=== PATIENT | female | born 1950 | race Caucasian/White ===

== ENCOUNTER 2017-11-01 02:40 | Emergency (ER) | payer MEDICARE, BC ==
[2017-11-01] MEDS ORDERED: ONDANSETRON HCL IV 4 MG/2 ML VIAL IVP ONE (02:45)
[2017-11-01] MEDS ORDERED: 0.9 % SODIUM CHLORIDE 1000ML 1,000 ML IV SCH (02:45)
[2017-11-01] MEDS ORDERED: MORPHINE SULFATE 5 MG/ML PFS IVP ONE (02:45)
--- NOTE | 2017-11-01 02:50 | Emergency Department Record ---
History of Present Illness - General Chief Complaint: Abdominal Pain Stated Complaint: ABD PAIN RADIATING TO BACK Source: Patient Mode of Arrival: EMS Limitations: No limitations - History of Present Illness Initial Comments: 67 yo female presents to ED for evaluation of epigastric abdominal pain that began approximately 1 hours prior to arrival. Patient reports that her pain symptoms radiate to her back, reports similar pain symptoms 8 years ago resulting from pancreatitis. Patient denies previous GB disease, denies alcohol intake. Patient denies health problems other than mild HTN. MD Complaint: Abdominal pain Onset/Timin -: Hour(s) Location: Epigastric Radiation: None Severity: Moderate Severity scale (1-10): 5 Quality: Aching Consistency: Constant Improves With: Nothing Worsens With: Nothing Associated Symptoms: Denies other symptoms - Related Data Patient : No Home Medications Medication Instructions Recorded Confirmed Last Taken Lisinopril [Lisinopril] 2.5 mg PO DAILY 11/01/17 11/01/17 Unknown Sumatriptan Succinate 100 mg PO DAILY 11/01/17 11/01/17 Unknown Previous Rx's Medication Instructions Recorded Hydrocodone/Acetaminophen [Alpha 1 each PO 10 PRN #10 tablet 11/01/17 5-325 Tablet] Allergies Allergy/AdvReac Type Severity Reaction Status Date / Time Penicillins Allergy ANAPHYLAXIS Verified 03/20/15 20:33 phenobarbital Allergy RASH Verified 11/01/17 02:45 Review of Systems Constitutional: Denies: Chills, Fever, Malaise, Night sweats Eyes: Denies: Eye discharge, Eye pain ENT: Denies: Congestion, Ear pain, Epistaxis Respiratory: Denies: Cough, Dyspnea Cardiovascular: Denies: Chest pain, Dyspnea on exertion Endocrine: Denies: Fatigue, Heat or cold intolerance Gastrointestinal: Reports: Abdominal pain. Denies: Nausea, Vomiting Genitourinary: Denies: Incontinence, Retention Musculoskeletal: Reports: Back pain. Denies: Arthralgia, Gout, Joint swelling Skin: Denies: Bruising, Change in color Neurological: Denies: Abnormal gait, Confusion, Headache, Seizure Psychiatric: Denies: Anxiety Hematological/Lymphatic: Denies: Anemia, Blood Clots Past Medical History - SOCIAL HISTORY Smoking Status: Former smoker Drug Use: None - RESPIRATORY Hx Respiratory Disorders: Yes Hx Bronchitis: Yes - CARDIOVASCULAR Hx Cardio Disorders: Yes Hx Hypertension: Yes - NEURO Hx Neuro Disorders: Yes Hx Headaches: Yes - GI Hx GI Disorders: Yes Hx Pancreatitis: Yes - Hx Genitourinary Disorders: Yes Hx Bladder Problem: Yes Hx UTI: Yes - ENDOCRINE Hx Endocrine Disorders: No - MUSCULOSKELETAL Hx Musculoskeletal Disorders: Yes Hx Arthritis: Yes - PSYCH Hx Psych Problems: No - HEMATOLOGY/ONCOLOGY Hx Hematology/Oncology Disorders: No Family Medical History Hx Cancer: Father, Mother Hx Diabetes: Father, Grandparents Hx Stroke: Father Physical Exam - General General Appearance: Alert, Oriented x3, Cooperative, Moderate distress Limitations: No limitations - Head Head exam: Atraumatic, Normocephalic, Normal inspection Head exam detail: negative: Abrasion, Contusion, Suh's sign, General tenderness, Hematoma, Laceration - Eye Eye exam: Normal appearance. negative: Conjunctival injection, Periorbital swelling, Periorbital tenderness, Scleral icterus - ENT Ear exam: negative: Auricular hematoma, Auricular trauma Nasal Exam: negative: Active bleeding, Discharge, Dried blood, Foreign body Mouth exam: negative: Drooling, Laceration, Muffled voice, Tongue elevation - Neck Neck exam: Normal inspection. negative: Meningismus, Tenderness - Respiratory Respiratory exam: Normal lung sounds bilaterally. negative: Rales, Respiratory distress, Rhonchi, Stridor - Cardiovascular Cardiovascular Exam: Regular rate, Normal rhythm, Normal heart sounds - GI/Abdominal GI/Abdominal exam: Soft, Tenderness (TTP RUQ, epigastric region on examination) . negative: Rebound, Rigid - Rectal Rectal exam: Deferred - exam: Deferred - Extremities Extremities exam: Normal inspection. negative: Calf tenderness, Pedal edema, Tenderness - Back Back exam: Denies: CVA tenderness (R), CVA tenderness (L) - Neurological Neurological exam: Alert, Oriented X3 - Psychiatric Psychiatric exam: Normal affect, Normal mood - Skin Skin exam: Normal color. negative: Abrasion Type of lesion: negative: abrasion Course - Reevaluation(s) Reevaluation #1: 11/01/17 03:44 Laboratory studies reviewed, Lipase 612, labs are otherwise grossly unremarkable for an acute process. Reevaluation #2: 11/01/17 04:26 EKG: NSR 58 Normal axis, normal intervals No acute ST-T wave changes Reevaluation #3: 11/01/17 04:33 CT Abdomen and Pelvis: Evidence of an infectious/Inflammatory enteritis Will obtain lactic acid, patient resting comfortably at this time. No evidence for acute cholecystitis on examination. Reevaluation #4: 11/01/17 05:32 lactic acid is 2.0, no evidence for for ischemic colitis. Patient reports that her pain symptoms are improved, and the patient appears stable for discharge with instructions for follow-up. Medical Decision Making - Lab Data Result diagrams: 11/01/17 02:55 11/01/17 02:55 Disposition Disposition: Discharge Clinical Impression: Pancreatitis Qualifiers: Chronicity: acute Pancreatitis type: unspecified pancreatitis type Acute pancreatitis complication: unspecified Qualified Code(s): K85.90 - Acute pancreatitis without necrosis or infection, unspecified Disposition: Home, Self-Care Condition: (2) Stable Instructions: Pancreatitis (ED) Additional Instructions: Return to ED if your symptoms worsen or if you have any concerns. Alpha as directed for pain. Follow-up with your family doctor in 1-3 days as directed. Prescriptions: Hydrocodone/Acetaminophen [Alpha 5-325 Tablet] 1 each PO 10 PRN #10 tablet PRN Reason: Pain - Moderate (5-7) Forms: Patient Portal Access Time of Disposition: 05:35 Quality - Quality Measures Quality Measures: N/A - Blood Pressure Screening Does Patient Have Any of the Following: No Blood Pressure Classification: Normal BP Reading Systolic Measurement: 110 Diastolic Measurement: 70 Screening for High Blood Pressure: < Normal BP, F/U Not Required > [G8783]
[2017-11-01 03:06] LABS: BASO % 0.2 % (0-6); EOS % 3.2 % (0-6); GRAN % 61.6 % (47-80); HEMATOCRIT 45.4 % (35.0-47.0); LYMPH % 29.1 % (16-45); MEAN CELL VOLUME 83.6 fl (81-97); MEAN CORPUSCULAR HEMOGLOBIN 27.6 pg (27-33); MEAN PLATELET VOLUME 10.4 fl (7.4-10.4); MONO % 5.9 % (0-9); PLATELET COUNT 295 K/uL (130-400); RED BLOOD COUNT 5.43 M/uL (3.80-5.40); RED CELL DISTRIBUTION WIDTH 14.1 % (11.5-14.5); WHITE BLOOD COUNT W/O DIFF 8.5 K/uL (4.2-12.2)
[2017-11-01 03:21] LABS: ALB/GLOB RATIO 1.7 (1.1-1.8); ALBUMIN 4.4 g/dL (4.0-5.0); ALKALINE PHOSPHATASE 65 U/L (35-104); ALT/SGPT 16 U/L (<33); AST/SGOT 16 U/L (10.0-35.0); BLOOD UREA NITROGEN 18 mg/dL (8-23); CREATININE 0.7 mg/dL (0.5-0.9); EST GLOMERULAR FILTRATION RATE > 60 mL/min; GLUCOSE,RANDOM 146 mg/dL (74-109)
[2017-11-01 03:33] LABS: LIPASE 612 U/L (13-60)
--- NOTE | 2017-11-01 14:22 | CT SCAN REPORT ---
EXAM: CT OF THE ABDOMEN AND PELVIS WITH CONTRAST HISTORY: RIGHT UPPER QUADRANT ABDOMINAL PAIN FOR A FEW HOURS. TECHNIQUE: Contrast enhanced helical CT examination of the abdomen and pelvis was performed including delayed images through the kidneys with 100 ml of Omnipaque 300 utilized. Comparison: CT of the abdomen and pelvis without contrast dated 08/24/16. FINDINGS: There is minimal dependent atelectasis in each lung base. The visualized lung bases are otherwise clear and there is no pleural or pericardial effusion. A small hiatal hernia is present. The wall of the intrathoracic portion of the stomach appears somewhat prominent in thickness though this may just relate to incomplete distention. A too small to characterize hypodense lesion is redemonstrated within the liver dome measuring 3 mm. This is stable. It is nonspecific, but likely a cyst or a hemangioma. There is redemonstration of a well circumscribed hypodense mass within the lateral segment of the left liver lobe adjacent to the fissure of the falciform ligament measuring 1.1 x 1.1 cm. This has a density of 8 Hounsfield units and is consistent with a cyst. It is unchanged. There is redemonstration of a mass centrally within the lateral segment of the left liver lobe. This currently measures 1.8 x 1.5 cm while on the prior examination hypodensity in this area measured 2.6 x 2.2 cm. There is peripheral nodular enhancement. This enhancement pattern is consistent with hemangioma. No other focal hepatic lesion. The spleen, pancreas, and adrenal glands are normal in appearance. There is a 3 mm nonobstructing calculus in the lower right kidney, stable. A tiny fat density focus is again noted within the posterior cortex of the upper pole of the left kidney consistent with angiomyolipoma, stable. There are a few too small to characterize hypodense foci within the left kidney and one in the right kidney. These are nonspecific, but are likely cysts. The kidneys are otherwise normal in appearance. The gallbladder is unremarkable. No biliary ductal dilatation is seen. No intraabdominal nor retroperitoneal lymphadenopathy. The uterus is surgically absent. There is a small volume of ascites within the dependent pelvis and there is a small amount of ascites contiguous with the liver primarily on the right. No definite pelvic mass nor lymphadenopathy. No intrinsic urinary bladder abnormality is seen. There is diffuse diverticulosis most pronounced in the sigmoid region where it is severe. No definite diverticulitis. The cecum is located in the right mid to upper abdomen. The appendix is visualized and normal in appearance. There is questionable minor wall thickening of several small bowel loops in the right lower quadrant for which mild enteritis cannot be excluded. No free intraperitoneal air. No lytic or blastic bone lesion. IMPRESSION: 1. SMALL VOLUME OF ASCITES OF INDETERMINATE ETIOLOGY. 2. POSSIBLE MINOR WALL THICKENING OF SEVERAL LOOPS OF ILEUM IN THE RIGHT LOWER QUADRANT WITH MILD ENTERITIS POSSIBLE. NO EXTRALUMINAL AIR. 3. COLONIC DIVERTICULOSIS. 4. THERE IS A PERIPHERALLY ENHANCING MASS WITHIN THE LATERAL SEGMENT OF THE LEFT LIVER LOBE WITH THE ENHANCEMENT PATTERN CONSISTENT WITH HEMANGIOMA. HEPATIC CYSTS. 5. TINY ANGIOMYOLIPOMA OF THE LEFT KIDNEY. THERE ARE A FEW TOO SMALL TO CHARACTERIZE HYPODENSE LESIONS WITHIN THE KIDNEYS. THESE ARE NONSPECIFIC, BUT ARE LIKELY CYSTS. SMALL NONOBSTRUCTING CALCULUS IN THE RIGHT KIDNEY. 6. HIATAL HERNIA. APPARENT MILD WALL THICKENING OF THE INTRATHORACIC PORTION OF THE STOMACH THOUGH THIS MAY JUST RELATE TO INCOMPLETE DISTENTION. IF CLINICALLY WARRANTED THIS COULD BE FURTHER EVALUATED WITH DIRECT VISUALIZATION. 7. 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 THIS IS STABLE. JOB NUMBER: [id number] MTDD
== END 2017-11-01 05:49 | disposition home or self-care (01) ==
LOC: ER 02:40
DX: K85.90 Acute pancreatitis without necrosis or infection, unspecified (principal); R11.11 Vomiting without nausea; I10 Essential (primary) hypertension; Z87.891 Personal history of nicotine dependence
CPT/HCPCS: 99284 ×2; 96374; 96375; 83605; 83690; 85025; 80053; 84484; 74177; 93005; 93010; Q9967; J2405; J2270; J7030

== ENCOUNTER 2018-03-13 07:32 | Day surgery (SDC) | payer MEDICARE, BC ==
[~2018-03-13 07:32] MED LIST: ACETAMINOPHEN 1,000 MG/100 ML BTL IV ONE; FAMOTIDINE 20MG TABLET PO ONE; MECLIZINE 25 MG TABLET PO ONE; METOCLOPRAMIDE 10 MG TABLET PO ONE
[2018-03-13] MEDS ORDERED: KETOROLAC 30 MG/ML VIAL IVP ONE (07:33)
[2018-03-13] MEDS ORDERED: LIDOCAINE 1% MDV (10MG/ML) 20ML VIAL SQ ONE (07:33)
[2018-03-13] MEDS ORDERED: SEVOFLURANE 250 ML INH ONE (07:33)
[2018-03-13] MEDS ORDERED: ROCURONIUM BROMIDE 50MG/5ML VIAL IV ONE (07:33)
[2018-03-13] MEDS ORDERED: MIDAZOLAM HCL 2MG/2ML VIAL IV ONE (07:33)
[2018-03-13] MEDS ORDERED: PROPOFOL 10 MG/ML VIAL IV ONE (07:33)
[2018-03-13] MEDS ORDERED: HYDROCODONE/APAP 5/325MG TABLET PO ONE (07:33)
[2018-03-13] MEDS ORDERED: BUPIVACAINE 0.25% W/EPI MPF 30ML VIAL IVP ONE (07:33)
[2018-03-13] MEDS ORDERED: SUCCINYLCHOLINE 20 MG/ML 10ML IVP ONE (07:33)
[2018-03-13] MEDS ORDERED: NEOSTIGMINE 1 MG/1 ML,10ML VIAL IV ONE (07:33)
[2018-03-13] MEDS ORDERED: GLYCOPYRROLATE 0.2 MG/ML ML IV ONE (07:33)
[2018-03-13] MEDS ORDERED: ONDANSETRON HCL IV 4 MG/2 ML VIAL IVP ONE (07:33)
[2018-03-13] MEDS ORDERED: FENTANYL PF 100MCG/2ML VIAL IV ONE (07:33)
--- NOTE | 2018-03-15 08:00 | Operative Note ---
DATE OF SURGERY: 03/13/2018 Surgeon: Yvan Hayes DO PREOPERATIVE DIAGNOSIS: Cholelithiasis with chronic cholecystitis. POSTOPERATIVE DIAGNOSIS: Cholelithiasis with chronic cholecystitis. OPERATION: Laparoscopic cholecystectomy. Indication: The patient is a 67-year-old female who has had ongoing right subcostal postprandial pain. We did discuss cholecystectomy versus medical management. She desired surgical intervention. Risks include but are not limited to bleeding, infection, ductal injury, possible conversion to open, postoperative bile leak. She understood this fully. PROCEDURE: The consent was signed and questions answered. She was taken to the operating room and placed in a supine position. General anesthesia was administered per the Department of Anesthesia. The patient's abdomen was prepped and draped in the sterile fashion. The periumbilical region was anesthetized with a total of 5 mL of 0.25% Sensorcaine with epinephrine. A 2 cm periumbilical incision was made. This was carried down bluntly to the anterior rectus fascia. This was incised. Ronny clamps were placed on the fascial edges and brought into the wound. Stay sutures of 0 Vicryl were placed. The posterior rectus sheath was identified and incised. The peritoneal cavity was entered bluntly. At this time a 10 mm blunt Brock port was placed. Adequate pneumoperitoneum was established. Under direct visualization, additional 5 mm epigastric and two 5 mm right subcostal ports were placed. The patient was rotated into the deep transverse Trendelenburg and placed with rotation to the left. The gallbladder was identified. This was retracted in a cephalad and lateral direction opening up the angle of Calot. The hepatocystic triangle was thoroughly dissected out. There was no aberrant anatomy, no posterior ductal structures. The distal half of the gallbladder was released from the cystic plate elongating a retro ductal window. The cystic duct and cystic artery were clearly identified. Each one was doubly clipped and cut in a standard fashion. The gallbladder was then taken off the liver bed with Jose Harmonic. This was extracted through the umbilical port. The right upper quadrant was rechecked and found to be hemostatic. No bleeding. No bile leak and no bowel injury noted. The patient was leveled out. The pneumoperitoneum was released. All ports were removed. The fascia was closed with 0 Vicryl in a [id number] fashion. The skin in all 4 ports was closed with 4-0 Vicryl. She was taken to the recovery room in satisfactory condition. FINDINGS AT THE TIME OF SURGERY: Chronic cholecystitis. MTDD
== END 2018-03-13 11:00 | disposition home or self-care (01) ==
LOC: SUR 07:32
PROVIDERS: ATTEND Surgery
DX: K80.10 Calculus of gallbladder with chronic cholecystitis without obstruction (principal); I10 Essential (primary) hypertension
CPT/HCPCS: C1776; J0330; J1885; J2405; J2710

== ENCOUNTER → 2018-03-30 | Day surgery (SDC) | payer MEDICARE, BC ==
[~2018-03-30] MED LIST changes: -ACETAMINOPHEN 1,000 MG/100 ML BTL IV ONE; -FAMOTIDINE 20MG TABLET PO ONE; +LIDOCAINE 1% MDV (10MG/ML) 20ML VIAL SQ ONE; -MECLIZINE 25 MG TABLET PO ONE; -METOCLOPRAMIDE 10 MG TABLET PO ONE; +PROPOFOL 10 MG/ML VIAL IV ONE
--- NOTE | 2018-03-31 13:00 | Operative Note ---
DATE OF SURGERY: 03/30/2018 OPERATION: ESOPHAGOGASTRODUODENOSCOPY with biopsy and hot snare polypectomy and hemoclip application. PREOPERATIVE DIAGNOSIS: Epigastric pain. POSTOPERATIVE DIAGNOSES: 1. Small hiatal hernia. 2. Gastritis. 3. Gastric polyp. PROCEDURE: After informed consent was obtained from the patient, she was placed in the left lateral decubitus position in the endoscopy suite, sedated and monitored by the department of anesthesia. Once sedated, a well-lubricated [id number] gastroscope was placed in the posterior oropharynx and under direct visualization passed to the proximal esophagus. The endoscope was advanced through the proximal, mid, and distal esophagus. The GE junction was unremarkable. There was a small hiatal hernia. The subdiaphragmatic stomach demonstrated a polyp in the mid body. The antrum demonstrated patchy erythema. The duodenal bulb and sweep were unremarkable. J-turn views of the proximal stomach revealed a small hiatal hernia. The endoscope was straightened and random gastric biopsies were obtained. The polyp was attempted to be biopsied but this was somewhat firm and as a result, it was removed with a polypectomy snare and ERBE Endocut current. The polypectomy defect was closed with 2 hemoclips. There was no bleeding noted after the clips had been applied. There was scant bleeding prior to the clips. The stomach was deflated. The endoscope removed from the patient. No new findings noted. RECOMMENDATIONS: The patient should avoid aspirin and nonsteroidal products for the next 2 weeks. Further recommendations will be forthcoming once tissue histology is available. As always, thank you for allowing me to participate in the healthcare of your patients. CC: KYRA DE LA VEGA D.O. Yvan Hayes, DO AQUINO
== END | disposition home or self-care (01) ==
LOC: HOP 10:52
PROVIDERS: ATTEND Internal Medicine Gastroenterology
DX: R10.13 Epigastric pain (principal); K44.9 Diaphragmatic hernia without obstruction or gangrene; K29.70 Gastritis, unspecified, without bleeding; D13.1 Benign neoplasm of stomach; I10 Essential (primary) hypertension

== ENCOUNTER 2018-08-05 09:29 | Emergency (ER) | payer MEDICARE, BC ==
[2018-08-05] MEDS ORDERED: KETOROLAC 30 MG/ML VIAL IVP ONE (09:45)
[2018-08-05] MEDS ORDERED: SODIUM CHLORIDE 0.9% 500 ML IV ONE (09:45)
[2018-08-05] MEDS ORDERED: 0.9 % SODIUM CHLORIDE 1000ML 1,000 ML IV PRN (09:45)
--- NOTE | 2018-08-05 09:52 | Emergency Department Record ---
History of Present Illness - General Chief complaint: Flank Pain Stated complaint: POSS KIDNEY STONES Time Seen by Provider: 08/05/18 09:33 Source: Patient Mode of Arrival: Ambulatory Limitations: No limitations - History of Present Illness Initial comments: Pt with one week of LLQ pains. Pain is worse in waves and with motion. Low grade tactile fevers at home. Diarrhea over the week "liquid with small stool in it" No blood in stool. Also notes some discomfort with urinatuion but no blood. No upper flank pain. Nausea after taking two Aleve and vomited once at that time. Hx of AMADA and GB surgery. Onset/Timin -: Week(s) Radiation: L flank, LLQ Severity: Moderate Quality: Aching, Cramping Consistency: Constant, Intermittent - Related Data Home Medications Medication Instructions Recorded Confirmed Last Taken Budesonide/Formoterol Fumarate 10.2 gm IH DAILY 08/05/18 08/05/18 1 Day Ago [Symbicort 160-4.5 Mcg Inhaler] ~08/04/18 Previous Rx's Medication Instructions Recorded Ciprofloxacin HCl [Cipro] 500 mg PO Q12HR 10 Days #20 tablet 08/05/18 Metronidazole [Flagyl] 500 mg PO BID 10 Days #20 tablet 08/05/18 Allergies Allergy/AdvReac Type Severity Reaction Status Date / Time divalproex sodium Allergy HIVES Verified 08/05/18 09:44 [From Depakote] doxycycline Allergy HIVES Verified 08/05/18 09:44 Penicillins Allergy ANAPHYLAXIS Verified 08/05/18 09:44 phenobarbital Allergy RASH Verified 08/05/18 09:44 Travel Screening - Travel/Exposure Within Last 30 Days Have you traveled within the last 30 days?: No - Travel/Exposure Within Last Year Have you traveled outside the [place] in the last year?: No - Additonal Travel Details Have you been exposed to anyone with a communicable illness?: No - Travel Symptoms Symptom Screening: None Review of Systems Constitutional: Reports: Fever (tactile). Denies: Chills, Weakness Eyes: Denies: Eye discharge, Eye pain ENT: Denies: Congestion, Dental pain Respiratory: Denies: Cough, Dyspnea Cardiovascular: Denies: Arrhythmia, Chest pain Endocrine: Denies: Fatigue, Polydipsia, Polyuria Gastrointestinal: Reports: As per HPI, Abdominal pain, Diarrhea, Nausea. Denies : Constipation Genitourinary: Reports: Dysuria. Denies: Hematuria, Retention, Urgency Musculoskeletal: Denies: Arthralgia, Joint swelling Skin: Denies: Bruising, Rash Neurological: Denies: Abnormal gait, Headache, Tingling Psychiatric: Denies: Anxiety Hematological/Lymphatic: Denies: Anemia Past Medical History - SOCIAL HISTORY Smoking Status: Former smoker Alcohol Use: None Drug Use: None - RESPIRATORY Hx Respiratory Disorders: Yes Hx Bronchitis: Yes (this spring 2017) - CARDIOVASCULAR Hx Cardio Disorders: Yes Hx Hypertension: Yes - NEURO Hx Neuro Disorders: Yes Hx Headaches: Yes Hx of Migraines: Yes (once in a while uses imitex) Hx Seizures: Yes (had one seizure with head injury 1994 hasnt been on meds for a long time) - GI Hx GI Disorders: Yes Hx Abdominal Pain: Yes Hx Reflux: Yes (occassionally) Hx Liver Disease: No (has cyst, benign) Hx Nausea/Vomiting: Yes (occassionally) Hx Pancreatitis: Yes (over the last 20 years) Hx Wt Loss/Wt Gain: Yes (weight loss has been due to an effort) Hx of Polyps: Yes Comment:: some constipation - Hx Genitourinary Disorders: Yes Hx Bladder Problem: Yes (hx of cyst on kidney was removed) Hx UTI: Yes - ENDOCRINE Hx Endocrine Disorders: No - MUSCULOSKELETAL Hx Musculoskeletal Disorders: Yes Hx Arthritis: Yes Comment:: salas cyst right knee, bilat bunions - PSYCH Hx Psych Problems: Yes Hx Anxiety: Yes Hx Depression: Yes (hx of) - HEMATOLOGY/ONCOLOGY Hx Hematology/Oncology Disorders: Yes Hx Anemia: Yes Hx Blood Transfusions: Yes (yrs ago) Hx Blood Transfusion Reaction: No Family Medical History Any Significant Family History?: Yes Hx Cancer: Father, Mother *Cancer Comment: mesothelioma Hx Diabetes: Father, Grandparents Hx Heart Disease: Mother Hx HTN: Father Hx Kidney Disease: Grandparents Hx Resp Disorders: Father, Mother *Resp Comment: mesothelioma Hx Stroke: Father Physical Exam - General General Appearance: Alert, Oriented x3, Cooperative, Mild distress - Head Head exam: Atraumatic - Eye Eye exam: Normal appearance, PERRL, EOMI - ENT ENT exam: Normal exam, Mucous membranes moist, Normal external ear exam, Normal orophraynx, TM's normal bilaterally - Neck Neck exam: Normal inspection, Full ROM. negative: Tenderness - Respiratory Respiratory exam: Normal lung sounds bilaterally. negative: Respiratory distress - Cardiovascular Cardiovascular Exam: Regular rate, Normal rhythm, Normal heart sounds - GI/Abdominal GI/Abdominal exam: Soft, Normal bowel sounds, Guarding, Tenderness. negative: Mass, Rebound, Rigid - Extremities Extremities exam: Normal inspection, Full ROM. negative: Calf tenderness - Back Back exam: Reports: Normal inspection. Denies: CVA tenderness (R), CVA tenderness (L) - Neurological Neurological exam: Alert, Normal gait, Oriented X3 - Psychiatric Psychiatric exam: Normal affect, Normal mood - Skin Skin exam: Normal color. negative: Rash Course Vital Signs 08/05/18 09:30 Temperature 98.4 F Pulse Rate 83 Respiratory 18 Rate Blood Pressure 144/103 Pulse Ox 97 - Reevaluation(s) Reevaluation #1: 08/05/18 11:23 Family at bedside awaiting CT. Pain improved with meds in ED. "Comfortable", Reevaluation #2: 08/05/18 12:13 CT read by rads as "Mild acute diverticulitis of the mid descending colon without perferation or abscess". Pt is no pain. Not vomiting. Discussed care at home after IV antibiotic here. Agrees. Will follow with Dr. Hayes. Medical Decision Making - Lab Data Result diagrams: 08/05/18 09:50 08/05/18 09:50 Disposition Disposition: Discharge Clinical Impression: Diverticulitis large intestine w/o perforation or abscess w/o bleeding Disposition: Home, Self-Care Condition: (2) Stable Instructions: Diverticulitis (ED), Diverticulitis Diet (ED) Additional Instructions: Take antibiotics as instructed. See Dr. Hayes this week Return to t ED if pain, fver, nausea, vomiting or concerns. Prescriptions: Ciprofloxacin HCl [Cipro] 500 mg PO Q12HR 10 Days #20 tablet Metronidazole [Flagyl] 500 mg PO BID 10 Days #20 tablet Referrals: Yvan Hayes [DOCTOR OF OSTEOPATH] - Forms: Patient Portal Access Quality - Quality Measures Quality Measures: N/A - Blood Pressure Screening Does Patient Have Any of the Following: No Blood Pressure Classification: Hypertensive Reading Systolic Measurement: 144 Diastolic Measurement: 103 Screening for High Blood Pressure: < Pre-Hypertensive BP, F/U Documented > [ G8950] Pre-Hypertensive Follow-up Interventions: Follow-up with rescreen every year.
[2018-08-05 10:12] LABS: BASO % 0.3 % (0-6); EOS % 1.1 % (0-6); GRAN % 79.1 % (47-80); HEMATOCRIT 40.9 % (35.0-47.0); HEMOGLOBIN 13.3 gm/dl (11.6-16.0); LYMPH % 13.9 % (16-45); MEAN CELL VOLUME 81.6 fl (81-97); MEAN CORPUSCULAR HEMOGLOBIN 26.5 pg (27-33); MEAN CORPUSCULAR HGB CONC 32.5 g/dl (32-36); MONO % 5.6 % (0-9); PLATELET COUNT 286 K/uL (130-400); RED BLOOD COUNT 5.01 M/uL (3.80-5.40); RED CELL DISTRIBUTION WIDTH 13.8 % (11.5-14.5); WHITE BLOOD COUNT W/O DIFF 11.2 K/uL (4.2-12.2)
[2018-08-05 10:17] LABS: URINE APPEARANCE CLEAR; URINE BILIRUBIN NEGATIVE (NEGATIVE); URINE BLOOD TRACE-I (NEGATIVE); URINE COLOR YELLOW; URINE GLUCOSE (UA) NEGATIVE (NEGATIVE); URINE KETONE NEGATIVE (NEGATIVE); URINE LEUKOCYTE ESTERASE TRACE (NEGATIVE); URINE NITRITE POSITIVE (NEGATIVE); URINE PROTEIN NEGATIVE (NEGATIVE); URINE UROBILINOGEN 0.2 E.U./dL (0.20 - 1.00)
[2018-08-05 10:29] LABS: BLOOD UREA NITROGEN 13 mg/dL (8-23); CREATININE 0.7 mg/dL (0.5-0.9); EST GLOMERULAR FILTRATION RATE > 60 mL/min
[2018-08-05 10:30] LABS: TOTAL PROTEIN 6.8 g/dL (6.6-8.7)
[2018-08-05 10:32] LABS: GLUCOSE,RANDOM 130 mg/dL (74-109)
[2018-08-05 10:34] LABS: ALB/GLOB RATIO 1.6 (1.1-1.8); ALBUMIN 4.2 g/dL (4.0-5.0); ALT/SGPT 16 U/L (<33); AST/SGOT 17 U/L (10.0-35.0)
[2018-08-05 10:35] LABS: ALKALINE PHOSPHATASE 80 U/L (35-104)
[2018-08-05 10:39] LABS: URINE BACTERIA 4+; URINE EPITHELIAL CELLS 0 - 2 (FEW); URINE RBC 0 - 2 (NONE SEEN)
[2018-08-05] MEDS ORDERED: METRONIDAZOLE IVPB 500 MG/100 ML BAG IVPB ONE (12:11)
[2018-08-05] MEDS ORDERED: CIPROFLOXACIN LACTATE/D5W 400 MG/200 ML BAG IVPB ONE (12:12)
--- NOTE | 2018-08-06 08:30 | CT SCAN REPORT ---
DATE: 08/05/2018. EXAM: CT OF THE ABDOMEN AND PELVIS WITH CONTRAST. HISTORY: LEFT LOWER QUADRANT PAIN. TECHNIQUE: Routine CT images of the abdomen and pelvis obtained following intravenous administration of contrast; amount and type of contrast in the medical record. COMPARISON: 11/01/2017. FINDINGS: The visualized lung bases are unremarkable. There is a small cyst in the left lobe of the liver. Additionally, there is a hyperenhancing focus slightly lateral, also within the left lobe of the liver, probably a hemangioma. The gallbladder is surgically absent. Mild prominence of the common bile duct, likely postcholecystectomy ectasia. The pancreas, spleen, and adrenals have a normal noncontrast appearance. The kidneys enhance normally with contrast. Small subcentimeter cysts are noted bilaterally. There is cortical thinning/scar within the inferior pole of the right kidney as before. Small, nonobstructing right intrarenal calculus. Tiny subcentimeter angiomyolipoma in the upper pole of the left kidney. Small hiatal hernia. Interval development of diverticulitis involving the mid portion of the descending colon with surrounding fat stranding and fluid within the left pericolic gutter. No rim-enhancing abscess is seen. No evident perforation. There is prominent colonic diverticulosis elsewhere. The appendix has a normal CT appearance. Small bowel normal in caliber. The bladder is unremarkable. Uterus is surgically absent. Aorta enhances normally with contrast. There is an unchanged, peripherally calcified splenic artery aneurysm measuring approximately 10 mm in size. No abdominal or pelvic lymphadenopathy. The abdominal wall soft tissues are unremarkable. No acute osseous abnormality. Moderate L4-5 degenerative disc disease. IMPRESSION: 1. ACUTE DIVERTICULITIS INVOLVING THE MID DESCENDING COLON. THERE IS MILD TO MODERATE SURROUNDING INFLAMMATORY CHANGE AND MILD FLUID IN THE PERICOLIC GUTTER. NO RIM-ENHANCING ABSCESS OR EVIDENCE FOR PERFORATION. 2. OTHER CHRONIC FINDINGS ABOVE. JOB NUMBER: [id number] [facility]
== END 2018-08-05 14:22 | disposition home or self-care (01) ==
LOC: ER 09:29
DX: K57.32 Diverticulitis of large intestine without perforation or abscess without bleeding (principal); R19.7 Diarrhea, unspecified; I10 Essential (primary) hypertension; Z87.891 Personal history of nicotine dependence
CPT/HCPCS: 99284 ×2; 96365; 96366; 96375; 96361; 96368; 85025; 80053; 81001; 74177; Q9967; J0744; J1885

== ENCOUNTER 2019-01-16 09:15 | Day surgery (SDC) | payer MEDICARE, BC ==
--- NOTE | 2019-01-01 14:46 | Rehab Joint Replacement Pre-Op ---
Rehab Joint Replacement Pre-Op - Pre-Op Visit Reviewed Items Scheduled for Post Op Visit: Yes Scheduled Post Op Visit Date: 01/16/19 Yovanny Hose/Garment Measurement TKR - Knee High: Yes (Ankle circumference: 9", Calf circumference: 15 1/4", Thigh circumference: 21 3/4", Leg length-thigh high : 28", Knee high: 17". According to these measurements the correct size stocking: Large-Short) Yovanny Hose/Garment Measure THR - Thigh High: N/A Exercise Reviewed: Yes Stair Climbing: Yes Cane/Walker/Crutch Training: Yes Vend Equipment - Cane or Walker and OT Kit: N/A List of Venders in the Area: Yes Shower Chair Transfers: Yes Car Transfers: Yes Bed Transfers: Yes Medical History Forms Issued: Yes Functional Scale Forms Issued: Yes Pre-Operative Intake Form - Scheduled Procedure Type of Surgical Procedure: Total Knee - Right - Patient Living Situation Current Living Situation: Other (Roomate) Current Housing Situation: One Story Home - Entrance Detail Current Housing Entrance: Steps, Hand Rails - Two Number of Steps: 4 - Bathroom Detail Bathroom Setup: Walk-In Shower Toilet Setup: Standard Height Toilet (wants to get a toilet riser), Grab Bars Not Present - Post-Op Home Assistance Pt has meals following surgery?: Yes (Daughter will be helping) Pt has transportation following surgery?: Yes (Roomate, and daughter) - Equipment Detail Currently Own/Have Access To: Walker, Shower Bench - Work Status Current Work Status: Retired - Additional Detail Patient Returning Home In: SUV Patient is scheduled for the following: Outpatient PT
[~2019-01-16 09:15] MED LIST changes: +CLINDAMYCIN 600MG/50ML PREMIX 600 MG/50 ML BAG IVPB ONE; +FAMOTIDINE 20MG TABLET PO ONE; -LIDOCAINE 1% MDV (10MG/ML) 20ML VIAL SQ ONE; +MECLIZINE 25 MG TABLET PO ONE; +METOCLOPRAMIDE 10 MG TABLET PO ONE; -PROPOFOL 10 MG/ML VIAL IV ONE
[2019-01-16] MEDS ORDERED: TRANEXAMIC ACID 1,000 MG/10 ML ML IV ONE (09:16)
[2019-01-16] MEDS ORDERED: MIDAZOLAM HCL 2MG/2ML VIAL IV ONE (09:16)
[2019-01-16] MEDS ORDERED: PROPOFOL 10 MG/ML VIAL IV ONE (09:16)
[2019-01-16] MEDS ORDERED: LIDOCAINE 2% MDV (20MG/ML) 20ML VIAL IV ONE (09:16)
[2019-01-16] MEDS ORDERED: EPHEDRINE SULFATE 50 MG/ML ML IV ONE (09:16)
[2019-01-16] MEDS ORDERED: RINGERS SOLUTION,LACTATED 1,000 ML IV ONE ×2 (10:09→12:23)
[2019-01-16] MEDS ORDERED: MAGNESIUM HYDROXIDE 30 ML UDC PO PRN (14:30)
[2019-01-16] MEDS ORDERED: TRAMADOL HCL 50 MG TABLET PO PRN (14:30)
[2019-01-16] MEDS ORDERED: AL HYDROX/MAG HYDROX 30ML UD PO PRN (14:30)
[2019-01-16] MEDS ORDERED: ZOLPIDEM TARTRATE 5 MG TABLET PO PRN (14:30)
[2019-01-16] MEDS ORDERED: HYDROCODONE/APAP 5/325MG TABLET PO PRN (14:30)
[2019-01-16] MEDS ORDERED: METOCLOPRAMIDE HCL 10 MG/2 ML VIAL IVP PRN (14:30)
[2019-01-16] MEDS ORDERED: ONDANSETRON HCL IV 4 MG/2 ML VIAL IVP PRN (14:30)
[2019-01-16] MEDS ORDERED: OXYCODONE HCL/APAP 5MG/325MG TABLET PO PRN ×2 (14:30)
[2019-01-16] MEDS ORDERED: ACETAMINOPHEN 325 MG TAB PO PRN (14:30)
[2019-01-16] MEDS ORDERED: NALOXONE 0.4 MG/1 ML VIAL IVP PRN (14:30)
[2019-01-16] MEDS ORDERED: SENNOSIDES/DOCUSATE SODIUM UD CAPSULE PO PRN (14:30)
[2019-01-16] MEDS ORDERED: DIPHENHYDRAMINE HCL 25 MG CAPSULE PO PRN (14:30)
[2019-01-16] MEDS: RINGERS SOLUTION,LACTATED 1,000 ML IV SCH ×2 (14:36→23:28)
[2019-01-16] MEDS ORDERED: SUMATRIPTAN 100 MG PO PRN (14:38)
[2019-01-16] MEDS: HYDROCODONE/APAP 5/325MG TABLET PO PRN ×2 (15:25→22:06)
[2019-01-16] MEDS ORDERED: TRANEXAMIC ACID 1,000 MG in 0.9 % SODIUM CHLORIDE 100ML 100 ML IVPB ONE (16:00)
[2019-01-16] MEDS: HYDROMORPHONE HCL 2 MG/ML VIAL IV PRN (16:07)
[2019-01-16] MEDS: TRAMADOL HCL 50 MG TABLET PO PRN (19:50)
[2019-01-16] MEDS: CLINDAMYCIN 600MG/50ML PREMIX 600 MG/50 ML BAG IVPB SCH (19:55)
[2019-01-16] MEDS: ASPIRIN 325 MG TAB ENTERIC-COATED PO SCH (22:06)
[2019-01-17] MEDS: TRAMADOL HCL 50 MG TABLET PO PRN (02:55)
[2019-01-17] MEDS: CLINDAMYCIN 600MG/50ML PREMIX 600 MG/50 ML BAG IVPB SCH ×2 (04:20→13:40)
[2019-01-17] MEDS: HYDROMORPHONE HCL 2 MG/ML VIAL IV PRN (04:58)
[2019-01-17] MEDS: HYDROCODONE/APAP 5/325MG TABLET PO PRN ×3 (07:32→14:02)
--- NOTE | 2019-01-17 08:41 | Operative Note ---
DATE OF SURGERY: 01/16/2019 SURGEON: Charles Hutchinson DO PREOPERATIVE DIAGNOSIS: Osteoarthritis of the right knee. POSTOPERATIVE DIAGNOSIS: Osteoarthritis of the right knee. OPERATION: Right total knee arthroplasty. DESCRIPTION OF PROCEDURE: This 68-year-old female was taken to the operating room and placed in the supine position on the operating room table after spinal anesthesia had been induced by the department of anesthesia. The right lower extremity was elevated. It was prepped with Hibiclens and draped in the usual sterile fashion, exsanguinated and the tourniquet inflated to 300 mmHg. All scrub personnel wore personal isolation suits. An anterior longitudinal midline incision was made followed by a medial parapatellar arthrotomy incision. An intracondylar drill hole was made for the intramedullary alignment lorie, and a 5-degree valgus 9 mm cut was made in the distal femur. The wafer of bone was removed. Sizing jig was affixed and size 60 was seen to be the appropriate size in the medial-lateral direction but too small in the anterior-posterior dimension. Therefore, we moved the pin sites 2 mm anteriorly and this gave us the appropriate fit anteriorly and the appropriate cuts were made. We then directed our attention to the proximal tibia, and an extramedullary alignment guide was used to cut the proximal tibia referencing a 10 mm cut off the lateral tibial plateau. However, because of inability to get below the subchondral bone on the medial femoral condyle, we took an additional 2 mm. Therefore, the cutting block was moved 2 mm distally, and the appropriate cut was made. Remnants of the menisci and osteophytes were removed from the posterior aspect of the joint. The tibia was sized to a size 71, and the stem punch was used. Trial reduction was accomplished and we found that the tibia was subluxing anteriorly due to the contracture of the posterior cruciate ligament. Therefore, we elected to proceed with posterior cruciate stabilized component. 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 The size 60 PS box was affixed, and the appropriate notch cut was made. Subsequently it was re-trialed with a 12 mm bearing which gave us excellent stability throughout full range of motion. The patella was measured, cut, and restored to anatomic height with a 34 x 8.5 mm patella. The knee again taken through full range of motion and found to be stable. All trial components were then removed, and the wound copiously irrigated with pulse lavage lactated Ringer's solution. All bony surfaces were dried. All components were cemented into place. We initially cemented a size 71 tibia baseplate and subsequently a 60 posterior stabilized femur. Subsequently, the 12 mm posterior stabilized plus bearing was inserted. The patella was then inserted. Once the cement had hardened, the knee was again taken through range of motion and found to be stable. Excess cement had been removed from each component after completion of the insertion of each component. The wound again irrigated and suctioned. A drain was placed through a separate stab incision, and the arthrotomy incision was closed with a #2 Vicryl. The subcutaneous tissue was closed with 0 Vicryl and the skin was stapled. Sterile dressings applied with a Polar Care. The patient was taken to the recovery room in satisfactory condition. GROSS PATHOLOGY: This patient demonstrated advanced osteoarthritis in the medial compartment and patellofemoral joint. 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 Final components inserted were a [employer] size 60 posterior stabilized femoral component, a 71 tibial baseplate, a 12 mm posterior stabilized plus bearing, and a 34 x 8.5 mm patella was used. CC: MD KENIA Morales
[2019-01-17] MEDS ORDERED: SYMBICORT INH SCH (10:00)
[2019-01-17] MEDS ORDERED: PATIENT OWN MED: LISINOPRIL 5 MG PO SCH (10:00)
[2019-01-17] MEDS ORDERED: CALCIUM CARBONATE 500 MG TAB.CHEW PO PRN (10:29)
[2019-01-17] MEDS: ASPIRIN 325 MG TAB ENTERIC-COATED PO SCH (10:39)
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
--- NOTE | 2019-01-18 09:11 | Discharge Summary ---
DATE OF ADMISSION: 01/16/2019 DATE OF DISCHARGE: 01/17/2019 SURGEON: Charles Hutchinson DO ADMITTING DIAGNOSIS: Osteoarthritis of the right knee. DISCHARGE DIAGNOSIS: Osteoarthritis of the right knee. OPERATIVE PROCEDURE: Elective right total knee arthroplasty. HISTORY OF PRESENT ILLNESS: This 68-year-old female was admitted to the hospital for elective total knee arthroplasty, tolerated the operative procedure well. She was cleared by physical therapy and did not show any signs of complication or DVT during the course of her hospitalization. She will be discharged to wear her SILAS hose during the day and remove them at night. She will take aspirin 325 mg daily, [place] 5/325 #60 1 every 4 hours as necessary for pain. Routine wound care instructions were given. She will have outpatient physical therapy and follow up in the clinic in 2 weeks. Should she have any problems prior to being seen, she was instructed to call my office. KENIA
== END 2019-01-17 16:11 | disposition home or self-care (01) ==
LOC: SUR 09:15 → MEDSURG 13:50 → SUR 01-17 16:11
PROVIDERS: ATTEND Orthopaedic Surgery
DX: M17.11 Unilateral primary osteoarthritis, right knee (principal); I10 Essential (primary) hypertension
CPT/HCPCS: 27447; 01402; 64447; 76942; J1170 ×2; J3490; J7120

== ENCOUNTER 2019-07-02 08:37 | Emergency (ER) | payer MEDICARE, BC ==
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
--- NOTE | 2019-07-02 17:42 | RADIOLOGY REPORT ---
STUDY: Left shoulder complete. CLINICAL HISTORY: Left shoulder pain. No recent injury. TECHNIQUE: Three views of the left shoulder. COMPARISON: Three views of the left shoulder dated 09/29/2013. ENCOUNTER: Initial. FINDINGS: There is [id number] osteopenia. No acute fracture nor dislocation. Mild hypertrophic changes of the acromioclavicular and glenohumeral joints. The apparent widening of the left acromioclavicular joint on the prior examination is not re-demonstrated. There is a tiny calcific density projecting near the superior margin of the osseous glenoid of the left scapula without donor site. This is likely chronic benign soft tissue calcification. Loose body is less likely. IMPRESSION: 1. No acute bone nor joint abnormality. 2. Mild hypertrophic changes of the acromioclavicular and glenohumeral joints. 3. Tiny chronic-appearing calcific density projection adjacent to the superior margin of the osseous glenoid of the left scapula. MTDD
== END 2019-07-02 10:13 | disposition home or self-care (01) ==
LOC: ER 08:37
DX: M25.512 Pain in left shoulder (principal); I10 Essential (primary) hypertension; Z87.891 Personal history of nicotine dependence
CPT/HCPCS: 99283

== ENCOUNTER 2019-09-06 09:10 | Day surgery (SDC) | payer MEDICARE, BC ==
[2019-09-06] MEDS ORDERED: LIDOCAINE 2% MDV (20MG/ML) 20ML VIAL IV ONE (09:11)
[2019-09-06] MEDS ORDERED: PROPOFOL 10 MG/ML VIAL IV ONE (09:11)
--- NOTE | 2019-09-07 10:40 | Operative Note ---
OPERATION: ESOPHAGOGASTRODUODENOSCOPY with photo. PREOPERATIVE DIAGNOSIS: History of gastric adenoma and followup. POSTOPERATIVE DIAGNOSES: 1. Gastric scar at prior polypectomy site. 2. Small hiatal hernia. 3. Otherwise normal upper endoscopy. PROCEDURE: After informed consent was obtained from the patient, she was placed in the left lateral decubitus position in the endoscopy suite, sedated and monitored by the department of anesthesia. A well-lubricated [id number] gastroscope was placed in the posterior oropharynx under direct visualization and passed to the proximal, mid, and distal esophagus. The GE junction and esophagus were unremarkable. There was a small hiatal hernia. The subdiaphragmatic stomach demonstrated normal distensibility, normal rugal folds. The pylorus, duodenal bulb, and sweep were unremarkable. J-turn views of the proximal stomach were unrevealing. The endoscope was straightened. The prior polypectomy site revealed a residual scar but no retained clips. No obvious polyp tissue was evident. The endoscope was removed from the patient with no new findings noted. Again, there was a small hiatal hernia noted. RECOMMENDATIONS: I would suggest the patient resume her medications and diet. I will plan on a repeat upper endoscopy in 3 years for surveillance purposes. As always, thank you for allowing me to participate in the healthcare of your patients. KENIA
== END 2019-09-06 10:42 | disposition home or self-care (01) ==
LOC: HOP 09:10
PROVIDERS: ATTEND Internal Medicine Gastroenterology
DX: Z87.19 Personal history of other diseases of the digestive system (principal); K44.9 Diaphragmatic hernia without obstruction or gangrene; L90.5 Scar conditions and fibrosis of skin; I10 Essential (primary) hypertension; J45.909 Unspecified asthma, uncomplicated; G43.909 Migraine, unspecified, not intractable, without status migrainosus